=== PATIENT | female | born 1980 | race Caucasian/White ===

== ENCOUNTER 2019-09-21 21:29 | Emergency (ER) | payer MEDICARE, MEDICAID ==
[~2019-09-21] VITALS: Ht 172.7 cm; Wt 70.0 kg
[2019-09-21] MEDS ORDERED: CLARITHROMYC500 MG PO (22:02)
[2019-09-21] MEDS ORDERED: MOTRIN800 MG PO (22:02)
[2019-09-21 22:40] VITALS: BP 148/90
== END 2019-09-21 22:43 | disposition home or self-care (01) ==
LOC: ED 21:29
DX: H66.91 Otitis media, unspecified, right ear (principal); F17.210 Nicotine dependence, cigarettes, uncomplicated

== ENCOUNTER 2021-08-08 18:36 | Emergency (ER) | payer MEDICARE, MEDICAID ==
[~2021-08-08] VITALS: Ht 172.7 cm; Wt 61.0 kg
[~2021-08-08 18:36] MED LIST: CLARITHROMYC500 MG PO; MOTRIN800 MG PO
[2021-08-08 19:26] VITALS: BP 185/100
[2021-08-08] MEDS ORDERED: METRONIDAZOL0.752 VA (19:34)
[2021-08-08] MEDS ORDERED: KEFLEX500 MG PO (19:34)
[2021-08-08] MEDS ORDERED: BACTROBAN TOP (19:34)
== END 2021-08-08 20:03 | disposition home or self-care (01) ==
LOC: ED 18:36
DX: L01.00 Impetigo, unspecified (principal); N76.0 Acute vaginitis; S99.929A Unspecified injury of unspecified foot, initial encounter; F41.9 Anxiety disorder, unspecified; B19.20 Unspecified viral hepatitis C without hepatic coma; F17.210 Nicotine dependence, cigarettes, uncomplicated; W45.0XXA Nail entering through skin, initial encounter

== ENCOUNTER 2021-10-05 21:12 | Emergency (ER) | payer OTHER, MEDICARE ==
[~2021-10-05] VITALS: Ht 172.7 cm; Wt 64.0 kg
[~2021-10-05 21:12] MED LIST changes: +BACTROBAN TOP; +KEFLEX500 MG PO; +METRONIDAZOL0.752 VA
[2021-10-05] MEDS ORDERED: MARIJUANA IN (21:46)
[2021-10-05] MEDS ORDERED: ULTRAM50 MG PO (23:05)
[2021-10-05 23:15] VITALS: BP 177/93
== END 2021-10-05 23:15 | disposition home or self-care (01) | DRG 552 ==
LOC: ED 21:12
DX: S16.1XXA Strain of muscle, fascia and tendon at neck level, initial encounter (principal); S63.615A Unspecified sprain of left ring finger, initial encounter; S93.602A Unspecified sprain of left foot, initial encounter; F41.9 Anxiety disorder, unspecified; M06.9 Rheumatoid arthritis, unspecified; M79.7 Fibromyalgia; B19.20 Unspecified viral hepatitis C without hepatic coma; F17.200 Nicotine dependence, unspecified, uncomplicated; V44.5XXA Car driver injured in collision with heavy transport vehicle or bus in traffic accident, initial encounter

== ENCOUNTER 2021-12-07 08:51 | Emergency (ER) | payer MEDICARE, OTHER ==
[~2021-12-07] VITALS: Ht 172.7 cm; Wt 65.7 kg
[~2021-12-07 08:51] MED LIST changes: +MARIJUANA IN; +ULTRAM50 MG PO
[2021-12-07 09:30] LABS: HEMATOCRIT 43.8 % (37.0-47.0); HEMOGLOBIN 14.5 g/dl (12.0-16.0); IMMATURE GRANULOCYTES 0.1 % (0.0-5.0); MEAN CELL VOLUME 113.8 fL CALC (80.0-100.0); MEAN CORPUSCULAR HGB 37.7 pG CALC (26.0-32.0); MEAN CORPUSCULAR HGB CONC 33.1 g/dL CAL (32.0-36.0); NEUT# 6.19 thou/uL (2.00-7.15); RED BLOOD COUNT 3.85 mill/uL (4.20-5.60); RED CELL DISTRI WIDTH 13.3 % (11.5-15.5)
[2021-12-07 09:54] LABS: MYOGLOBIN 45 ng/mL (0 - 62)
[2021-12-07 14:03] LABS: ALKALINE PHOSPHATASE 120 u/l (38-126); ANION GAP 20 (6-22 (CALC)); BILIRUBIN, TOTAL 0.9 mg/dL (0.0-1.4); BUN 13 mg/dL (7-17); BUN/CREATININE RATIO 21 (12-20 (CALC)); CARBON DIOXIDE 23 mmol/l (22-30); CHLORIDE 96 mmol/l (95-108); CREATININE 0.6 mg/dL (0.5-1.0); GFR > 60 ML/MIN (>=60 (CALC)); GFR FOR AFR.AMER. > 60 ML/MIN (>=60 (CALC)); POTASSIUM 4.1 mmol/l (3.5-5.1); SGOT/AST 146 u/l (14-36); SODIUM 136 mmol/l (137-146); TOTAL PROTEIN 9.3 g/dL (6.3-8.2)
[2021-12-07] MEDS ORDERED: ZOFRAN4 MG/TAB PO (14:12)
[2021-12-07 14:16] LABS: CALCULATED LDLCHOLESTEROL 145 mg/dL (62-129 (CALC)); CHOLESTEROL HDL RATIO 2.8 (<4.4 (CALC)); HDL CHOLESTEROL 93 mg/dL (>=40); TOTAL CHOLESTEROL 259 mg/dl (0-199); TOTAL TRIGLYCERIDES 109 mg/dl (30-149); VLDL CHOLESTROL 22 mg/dl (1-41 (CALC))
[2021-12-07 15:44] VITALS: BP 136/88
== END 2021-12-07 15:46 | disposition home or self-care (01) ==
LOC: ED 08:51
PROVIDERS: Emergency Medicine
DX: R11.10 Vomiting, unspecified (principal); L98.9 Disorder of the skin and subcutaneous tissue, unspecified; M79.7 Fibromyalgia; F41.9 Anxiety disorder, unspecified; B19.20 Unspecified viral hepatitis C without hepatic coma; F17.200 Nicotine dependence, unspecified, uncomplicated

== ENCOUNTER 2022-03-26 19:17 | Emergency (ER) | payer MEDICARE ==
[~2022-03-26] VITALS: Ht 172.7 cm; Wt 65.0 kg
[2022-03-26] VITALS (9 sets, daily range): BP systolic 160–188; BP diastolic 99–126
[~2022-03-26 19:17] MED LIST changes: +ZOFRAN4 MG/TAB PO
[2022-03-26] MEDS ORDERED: AMOXICILLIN500 MG PO (19:30)
[2022-03-26] MEDS ORDERED: ULTRAM50 M1 PO (19:30)
[2022-03-26] MEDS ORDERED: NAPROXEN500 MG PO (20:42)
[2022-03-26 20:52] LABS: HEMATOCRIT 38.4 % (37.0-47.0); HEMOGLOBIN 13.3 g/dl (12.0-16.0); IMMATURE GRANULOCYTES 0.1 % (0.0-5.0); MEAN CELL VOLUME 111.6 fL CALC (80.0-100.0); MEAN CORPUSCULAR HGB 38.7 pG CALC (26.0-32.0); MEAN CORPUSCULAR HGB CONC 34.6 g/dL CAL (32.0-36.0); NEUT# 4.87 thou/uL (2.00-7.15); RED BLOOD COUNT 3.44 mill/uL (4.20-5.60); RED CELL DISTRI WIDTH 14.6 % (11.5-15.5)
[2022-03-26 21:09] LABS: ALBUMIN 3.9 g/dL (3.2-5.0); ALKALINE PHOSPHATASE 93 u/l (38-126); ANION GAP 14 (6-22 (CALC)); BILIRUBIN, TOTAL 0.4 mg/dL (0.0-1.4); BUN 8 mg/dL (7-17); BUN/CREATININE RATIO 18 (12-20 (CALC)); CARBON DIOXIDE 25 mmol/l (22-30); CHLORIDE 100 mmol/l (95-108); CREATININE 0.5 mg/dL (0.5-1.0); GFR FOR AFR.AMER. > 60 ML/MIN (>=60 (CALC)); GFR OTHER RACES > 60 ML/MIN (>=60 (CALC)); POTASSIUM 3.8 mmol/l (3.5-5.1); SGOT/AST 95 u/l (14-36); SODIUM 136 mmol/l (137-146); TOTAL PROTEIN 7.3 g/dL (6.3-8.2)
== END 2022-03-26 20:56 | disposition home or self-care (01) ==
LOC: ED 19:17
PROVIDERS: Emergency Medicine
DX: K08.89 Other specified disorders of teeth and supporting structures (principal)

== ENCOUNTER 2023-08-24 21:24 | Emergency (ER) | payer MEDICARE ==
[~2023-08-24] VITALS: Ht 172.7 cm; Wt 58.9 kg
[~2023-08-24 21:24] MED LIST changes: +AMOXICILLIN500 MG PO; +NAPROXEN500 MG PO; +ULTRAM50 M1 PO
[2023-08-24 21:37] VITALS: BP 157/85
[2023-08-24 22:19] LABS: URINE BLOOD DIPSTICK Large (NEGATIVE); URINE GLUCOSE - DIPSTICK Negative (NEGATIVE); URINE KETONE Trace mg/dL (NEGATIVE); URINE NITRITE - DIPSTICK Negative (Negative); URINE PH 5.5 (4.5-8.0); URINE PROTEIN - DIPSTICK 30 mg/dL (NEG-TRACE); URINE SPECIFIC GRAVITY >=1.030
[2023-08-24 22:21] LABS: BASO% 0.5 % (0-3); EOS% 1.6 % (0-8); HEMATOCRIT 42.4 % (37.0-47.0); HEMOGLOBIN 13.6 g/dl (12.0-16.0); MEAN CORPUSCULAR HGB 31.1 pG CALC (26.0-32.0); MEAN CORPUSCULAR HGB CONC 32.1 g/dL CAL (32.0-36.0); MONO% 5.9 % (2-13); NEUT# 5.02 thou/uL (2.00-7.15); RED BLOOD COUNT 4.38 mill/uL (4.20-5.60); RED CELL DISTRI WIDTH 12.9 % (11.5-15.5)
[2023-08-24 22:23] LABS: MEAN CELL VOLUME 96.8 fL CALC (80.0-100.0)
[2023-08-24 22:25] LABS: URINE COLOR Yellow
[2023-08-24 22:42] LABS: ALBUMIN 4.5 g/dL (3.2-5.0); ALKALINE PHOSPHATASE 56 u/l (38-126); ANION GAP 14 (6-22 (CALC)); BUN 20 mg/dL (7-17); BUN/CREATININE RATIO 28 (12-20 (CALC)); CARBON DIOXIDE 28 mmol/l (22-30); CHLORIDE 102 mmol/l (95-108); CPK 56 u/l (30-135); CREATININE 0.7 mg/dL (0.5-1.0); GFR FOR AFR.AMER. > 60 ML/MIN (>=60 (CALC)); GFR OTHER RACES > 60 ML/MIN (>=60 (CALC)); MAGNESIUM 1.9 mg/dL (1.6-2.3); POTASSIUM 3.6 mmol/l (3.5-5.1); SGOT/AST 24 u/l (14-36); SODIUM 141 mmol/l (137-146); TOTAL PROTEIN 7.8 g/dL (6.3-8.2)
[2023-08-24 22:43] LABS: URINE LEUK ESTERASE Negative (NEGATIVE)
[2023-08-24 22:45] LABS: URINE BACTERIA MODERATE hpf; URINE EPITHELIAL CELLS MODERATE EPI/hpf (0-FEW); URINE MUCUS MODERATE hpf (NONE-FEW)
[2023-08-24 22:46] LABS: URINE CALCIUM OXALATE CRYSTALS MODERATE lpf
[2023-08-24 22:53] LABS: BILIRUBIN, TOTAL 0.6 mg/dL (0.02-1.3)
[2023-08-24] MEDS ORDERED: BACTRIM DS1 TAB PO (23:46)
== END 2023-08-25 00:13 | disposition home or self-care (01) ==
LOC: ED 21:24
PROVIDERS: Family Medicine
DX: N39.0 Urinary tract infection, site not specified (principal); M54.2 Cervicalgia; M54.9 Dorsalgia, unspecified; F41.9 Anxiety disorder, unspecified; B19.20 Unspecified viral hepatitis C without hepatic coma; F17.200 Nicotine dependence, unspecified, uncomplicated

== ENCOUNTER 2025-01-08 09:01 | Emergency (ER) | payer MEDICARE ==
[~2025-01-08] VITALS: Ht 172.7 cm; Wt 68.0 kg
[~2025-01-08 09:01] MED LIST changes: +BACTRIM DS1 TAB PO
[2025-01-08 09:06] VITALS: BP 178/108
[2025-01-08 09:15] VITALS: BP 153/91
[2025-01-08 09:30] VITALS: BP 158/99
[2025-01-08 09:45] VITALS: BP 141/90
[2025-01-08 10:00] VITALS: BP 145/88
[2025-01-08 10:11] VITALS: BP 145/88
== END 2025-01-08 10:18 | disposition home or self-care (01) ==
LOC: ED 09:01
PROC: 2W3JX1Z Immobilization of Right Finger using Splint (ICD-10-PCS; principal; 2025-01-08)
DX: S62.616A Displaced fracture of proximal phalanx of right little finger, initial encounter for closed fracture (principal); F17.200 Nicotine dependence, unspecified, uncomplicated; X58.XXXA Exposure to other specified factors, initial encounter; Y93.89 Activity, other specified; Y92.009 Unspecified place in unspecified non-institutional (private) residence as the place of occurrence of the external cause